=== PATIENT | female | born 1990 | race Caucasian/White ===

== ENCOUNTER 2023-01-04 11:10 | Inpatient (IN) | payer BC ==
[2023-01-04 11:41] VITALS: BMI 40.7
[2023-01-04] MEDS ORDERED: Bicitra 30 ML UDCUP PO PRN (12:28)
[2023-01-04] MEDS ORDERED: Famotidine/PF 20 mg/2ml Vial SLOW IVP PRN (12:28)
[2023-01-04] MEDS ORDERED: Ondansetron PF 4 MG/2 ML Vial IVP PRN ×4 (12:28→22:38)
[2023-01-04] MEDS ORDERED: Lorazepam 2 MG/ML VIAL SLOW IVP PRN (12:28)
[2023-01-04] MEDS ORDERED: Promethazine HCl 25 MG/ML VIAL IM PRN ×4 (12:28→22:38)
[2023-01-04] MEDS ORDERED: hydrALAZINE 20 MG/ML VIAL SLOW IVP PRN ×2 (12:28→22:38)
[2023-01-04] MEDS ORDERED: Calcium Gluc 4.6 MEQ/10 ML (100 MG/ML) SLOW IVP PRN (12:28)
[2023-01-04] MEDS ORDERED: CEFAZOLIN 2 GM in Sodium Chloride 0.9% 100 ML IVPB SCH (12:30)
[2023-01-04] MEDS ORDERED: Dextrose 5%-Lactated Ringers 1,000 ML IV SCH (12:30)
[2023-01-04] MEDS ORDERED: NS w/ Oxytocin 30 units 500 ML IV SCH ×2 (12:30→22:38)
[2023-01-04 13:07] LABS: Hematocrit 33.9 % (34.9-44.5); Hemoglobin 11.7 g/dL (12.0-15.5); Mean Corpuscular HGB CONC 34.5 g/dL (32.0-36.0); Mean Corpuscular Hemoglobin 30.8 pg (27.0-33.0); Mean Corpuscular Volume 89.2 fl (81.6-98.3); Mean Platelet Volume 11.1 fl (7.4-10.4); Platelet Count 233 10x3/uL (150-450); RBC Distribution Width 12.6 % (11.5-14.5); White Blood Cell (WBC) Count 8.8 10x3/uL (3.5-10.5)
[2023-01-04 14:04] LABS: ALT (SGPT) 14 U/L (8-55); AST (SGOT) 19 U/L (5-34); Albumin 3.5 g/dL (3.5-5.0); Alkaline Phosphatase 139 U/L (40-110); Anion Gap 15 mmol/L (10-20); BUN (Urea Nitrogen) 10 mg/dL (7.0-18.7); Bilirubin, Total 0.2 mg/dL (0.2-1.2); Calc. Creatinine Clearance 199 mL/min (70-130); Calcium 9.3 mg/dL (7.8-10.44); Carbon Dioxide 18 mmol/L (22-29); Chloride 106 mmol/L (98-107); Estimated GFR 115; Globulin 2.8 g/dL (2.4-3.5); Glucose 71 mg/dL (70-105); Potassium 3.8 mmol/L (3.5-5.1); Protein, Total 6.3 g/dL (6.0-8.3); Sodium 135 mmol/L (136-145)
[2023-01-04 14:24] LABS: Syphilis Antibody Nonreactive (Nonreactive); Syphilis Antibody Index 0.04 S/CO (<1.00 Non-Reactive)
[2023-01-04 14:25] LABS: Hep B Surf Ag - L&D Non-Reactive S/CO (NonReactive)
[2023-01-04] MEDS ORDERED: diphenhydrAMINE 50 MG/ML VIAL IVP PRN ×2 (16:43→20:20)
[2023-01-04] MEDS ORDERED: Naloxone HCl 0.4 mg/ml Vial IVP PRN ×4 (16:43→20:20)
[2023-01-04] MEDS ORDERED: Moisturizing Cream (Eucerin) 113 GM JAR TOP PRN ×2 (16:43→20:20)
[2023-01-04] MEDS ORDERED: Fentanyl 50 MCG/1 ML VIAL SLOW IVP PRN ×2 (16:43→20:20)
[2023-01-04] MEDS ORDERED: Meperidine HCl/PF 25 MG/ML VIAL SLOW IVP PRN ×2 (16:43→20:20)
[2023-01-04] MEDS ORDERED: Ondansetron HCl/PF 4 MG/2 ML Vial IVP PRN ×2 (16:43→20:20)
[2023-01-04] MEDS ORDERED: Promethazine HCl 25 MG SUPP PR PRN ×2 (16:43→20:20)
[2023-01-04] MEDS ORDERED: Ketorolac Tromethamine 30 MG/ML VIAL IVP PRN (16:43)
[2023-01-04] MEDS ORDERED: Naloxone HCl 0.4 mg/ml Vial IV PRN ×2 (16:43→20:20)
[2023-01-04] MEDS ORDERED: Ketorolac Tromethamine 30 MG/ML VIAL IVP SCH ×2 (16:45→20:30)
[2023-01-04] MEDS ORDERED: Communication Order-Pharmacy FS SCH ×2 (16:45→20:30)
[2023-01-04] MEDS ORDERED: Ketorolac Tromethamine 30 MG/ML VIAL ONE (18:57)
[2023-01-04] MEDS ORDERED: Oxytocin 10 UNITS/ML VIAL ONE (18:57)
[2023-01-04] MEDS ORDERED: Phenylephrine 40 MG/NS 250 ML 250 ML ONE (18:57)
[2023-01-04] MEDS ORDERED: Dexamethasone 4 mg/ml Vial ONE (18:57)
[2023-01-04] MEDS ORDERED: Ondansetron PF 4 MG/2 ML Vial ONE (18:57)
[2023-01-04] MEDS ORDERED: Morphine PF 10 MG/10 ML VIAL ONE (19:03)
[2023-01-04] MEDS ORDERED: diphenhydrAMINE 50 MG/ML VIAL ONE (19:54)
[2023-01-04] MEDS ORDERED: fentaNYL 50 mcg/mL 1 mL Vial SLOW IVP PRN (22:07)
[2023-01-04] MEDS ORDERED: fentaNYL 50 mcg/mL 1 mL Vial ONE (22:09)
[2023-01-04] MEDS ORDERED: Simethicone Chewable 80 MG TAB PO PRN (22:38)
[2023-01-04] MEDS ORDERED: Misoprostol 200 MCG TAB PR PRN (22:38)
[2023-01-04] MEDS ORDERED: Boostrix 0.5 ML (Tdap) VIAL (>/=7 yrs of age) IM ONE (22:38)
[2023-01-04] MEDS ORDERED: Ferrous Sulfate 325 MG TAB PO SCH (23:00)
[2023-01-04] MEDS ORDERED: Docusate 100 MG CAP PO SCH (23:00)
[2023-01-05] MEDS: Ketorolac Tromethamine 30 MG/ML VIAL IVP PRN ×3 (01:35→15:19)
[2023-01-05 04:29] LABS: Hematocrit 28.7 % (34.9-44.5); Hemoglobin 9.8 g/dL (12.0-15.5); Mean Corpuscular HGB CONC 34.1 g/dL (32.0-36.0); Mean Corpuscular Hemoglobin 30.6 pg (27.0-33.0); Mean Corpuscular Volume 89.7 fl (81.6-98.3); Platelet Count 189 10x3/uL (150-450); RBC Distribution Width 12.4 % (11.5-14.5)
[2023-01-05] MEDS: Docusate 100 MG CAP PO SCH ×2 (09:04→20:52)
[2023-01-05] MEDS: Prenatal Vitamin 1 TAB PO SCH (09:04)
[2023-01-05] MEDS: Acetaminophen 500 MG TAB PO SCH ×3 (09:04→22:47)
[2023-01-05] MEDS: Ferrous Sulfate 325 MG TAB PO SCH ×2 (09:04→22:51)
[2023-01-05] MEDS: Ibuprofen 800 MG TAB PO SCH (20:52)
[2023-01-05] MEDS ORDERED: Acetaminophen 500 MG TAB ONE (22:49)
[2023-01-06 03:46] LABS: Hematocrit 25.7 % (34.9-44.5); Hemoglobin 8.8 g/dL (12.0-15.5); Mean Corpuscular HGB CONC 34.2 g/dL (32.0-36.0); Mean Corpuscular Hemoglobin 31.1 pg (27.0-33.0); Mean Corpuscular Volume 90.8 fl (81.6-98.3); Mean Platelet Volume 10.4 fl (7.4-10.4); Platelet Count 194 10x3/uL (150-450); Red Blood Cell (RBC) Count 2.83 10x6/uL (3.90-5.03); White Blood Cell (WBC) Count 9.3 10x3/uL (3.5-10.5)
[2023-01-06] MEDS: Ibuprofen 800 MG TAB PO SCH ×3 (04:57→21:46)
[2023-01-06] MEDS ORDERED: HYDROcodone/Acetaminophen 5/325 mg Tablet PO PRN (07:49)
[2023-01-06] MEDS ORDERED: Acetaminophen 500 MG TAB PO PRN (07:50)
[2023-01-06] MEDS: Docusate 100 MG CAP PO SCH ×2 (08:27→19:55)
[2023-01-06] MEDS: Prenatal Vitamin 1 TAB PO SCH (08:27)
[2023-01-06] MEDS: Ferrous Sulfate 325 MG TAB PO SCH ×2 (08:28→19:55)
[2023-01-06 22:35] VITALS: TEMP 98.5
[2023-01-07] MEDS: Ibuprofen 800 MG TAB PO SCH (05:01)
[2023-01-07 05:39] LABS: Hematocrit 28.5 % (34.9-44.5); Hemoglobin 9.4 g/dL (12.0-15.5); Mean Corpuscular Volume 91.1 fl (81.6-98.3); Mean Platelet Volume 9.9 fl (7.4-10.4); Platelet Count 234 10x3/uL (150-450); RBC Distribution Width 13.2 % (11.5-14.5); Red Blood Cell (RBC) Count 3.13 10x6/uL (3.90-5.03); White Blood Cell (WBC) Count 9.7 10x3/uL (3.5-10.5)
[2023-01-07 08:42] VITALS: BP 133/77
[2023-01-07] MEDS ORDERED: Hydrocortisone 1% Cream 30 GM TUBE TOP SCH (09:00)
[2023-01-07] MEDS: Ferrous Sulfate 325 MG TAB PO SCH (09:07)
[2023-01-07] MEDS: Docusate 100 MG CAP PO SCH (09:07)
[2023-01-07] MEDS: Prenatal Vitamin 1 TAB PO SCH (09:07)
== END 2023-01-07 12:30 | disposition home or self-care (01) | DRG 788 ==
LOC: CSHLD 11:10 → CSHPP 22:50
PROVIDERS: ADMIT Family Medicine; ATTEND Family Medicine
PROC: 10D00Z1 Extraction of Products of Conception, Low, Open Approach (ICD-10-PCS; principal; 2023-01-04)
DX: O32.1XX0 Maternal care for breech presentation, not applicable or unspecified (principal); Z3A.38 38 weeks gestation of pregnancy; Z37.0 Single live birth; O13.4 Gestational [pregnancy-induced] hypertension without significant proteinuria, complicating childbirth; O99.02 Anemia complicating childbirth; D64.9 Anemia, unspecified; O99.214 Obesity complicating childbirth; O99.73 Diseases of the skin and subcutaneous tissue complicating the puerperium; L25.9 Unspecified contact dermatitis, unspecified cause
CPT/HCPCS: 36415; 51702; 80053; 82570; 84156; 85027; 86780; 86850; 86900; 86901; 87340; J1100; J1200; J1885; J2274; J2405; J2590; J3010; J3490